=== PATIENT | female | born 1995 | race African-American/Black ===

== ENCOUNTER 2022-02-12 09:49 | Emergency (ER) | payer MEDICAID, OTHER ==
[~2022-02-12] VITALS: Ht 162.6 cm; Wt 55.0 kg
[2022-02-12 10:01] VITALS: BP 109/70
[2022-02-12] MEDS ORDERED: FAMOTIDINE 20MG/2ML VIAL IV ONE (11:15)
[2022-02-12] MEDS ORDERED: DIPHENHYDRAMINE 50MG/ML VIAL IV ONE (11:15)
[2022-02-12] MEDS ORDERED: SODIUM CHLORIDE 0.9% 1,000 ML IV SCH (11:15)
[2022-02-12] MEDS ORDERED: METHYLPREDNISOLONE SOD SUCC 125 MG/2 ML VIAL IV ONE (11:15)
[2022-02-12] MEDS ORDERED: EPINEPHRINE 1:1000 1 MG/ML AMP IM ONE (11:15)
[2022-02-12] MEDS ORDERED: P20 MT (15:24)
[2022-02-12] MEDS ORDERED: LORA10TA7 MT (15:24)
[2022-02-12] MEDS ORDERED: EPIN0.3A3 IM (15:28)
[2022-02-12] MEDS ORDERED: PREDNISONE 20MG TABLET PO ONE (15:30)
== END 2022-02-12 15:51 | disposition home or self-care (01) ==
LOC: ER 09:49
DX: T78.40XA Allergy, unspecified, initial encounter (principal); X58.XXXA Exposure to other specified factors, initial encounter; R22.0 Localized swelling, mass and lump, head; L29.9 Pruritus, unspecified
CPT/HCPCS: 81025; 96372; 96374; 96375; 99284; J1200; J2930; J3490; Z7610